=== PATIENT | female | born 1950 | race Caucasian/White ===

== ENCOUNTER 2019-05-02 21:18 | Observation (INO) | payer MEDICARE, OTHER ==
[2019-05-02] MEDS ORDERED: Aspirin Chewable 81 MG TAB ONE (21:56)
[2019-05-02 22:31] LABS: #Basophils 0.1 thou/uL (0.0-0.2); #Eosinphils 0.1 thou/uL (0.0-0.7); #Lymphocytes 3.9 thou/uL (1.20-3.40); #Monocytes 0.9 thou/uL (0.11-0.59); #Neutrophils 6.9 thou/uL (1.40-6.50); %Basophils 0.6 % (0.0-1.0); %Eosinophils 1.2 % (0.0-10.0); %Lymphocytes 32.6 % (21.0-51.0); %Monocytes 7.6 % (0.0-10.0); Hemoglobin 13.9 g/dL (12.0-16.0); Mean Corpuscular HGB CONC 34.3 g/dL (32.0-36.0); Mean Corpuscular Hemoglobin 31.5 pg (27.0-31.0); Mean Corpuscular Volume 91.9 fL (78.0-98.0); Mean Platelet Volume 8.9 fL (7.4-10.4); Platelet Count 228 thou/uL (130-400); RBC Distribution Width 13.2 % (11.5-14.5); Red Blood Cell (RBC) Count 4.39 mill/uL (4.20-5.40); White Blood Cell (WBC) Count 11.8 thou/uL (4.8-10.8)
[2019-05-02 22:32] LABS: PTT 27.9 SEC (22.9-36.1); Prothrombin Time 13.3 SEC (12.0-14.7)
--- NOTE | 2019-05-02 22:37 | RAD ---
EXAM: CHEST ONE VIEW HISTORY: Chest pain COMPARISON: 01/23/2009 FINDINGS: Postsurgical changes related to CABG are again noted. The cardiac silhouette and pulmonary vasculatur e are within normal limits. The lungs are clear. Vascular calcifications are seen in thoracic aorta. IMPRESSION: No acute cardiopulmonary process.
[2019-05-02 22:43] LABS: ALT (SGPT) 14 U/L (8-55); AST (SGOT) 17 U/L (5-34); Albumin 4.3 g/dL (3.4-4.8); Alkaline Phosphatase 84 U/L (40-150); Anion Gap 15 mmol/L (10-20); BUN (Urea Nitrogen) 19 mg/dL (9.8-20.1); Bilirubin, Total 0.3 mg/dL (0.2-1.2); Calc. Creatinine Clearance 0 mL/min (70-130); Calcium 10.3 mg/dL (7.8-10.44); Carbon Dioxide 24 mmol/L (23-31); Chloride 100 mmol/L (98-107); Estimated GFR-MDRD 51; Globulin 2.7 g/dL (2.4-3.5); Glucose 162 mg/dL (80-115); Magnesium 1.5 mg/dL (1.6-2.6); Potassium 3.9 mmol/L (3.5-5.1); Sodium 135 mmol/L (136-145)
[2019-05-03 01:45] LABS: Troponin I Less than 0.010 ng/mL (< 0.028)
[2019-05-03 04:23] LABS: Troponin I 0.019 ng/mL (< 0.028)
[2019-05-03 07:42] VITALS: BMI 37.5
[2019-05-03] MEDS ORDERED: Ondansetron PF 4 MG/2 ML Vial IVP PRN (08:19)
[2019-05-03] MEDS ORDERED: HumaLOG 300 UNITS/3 ML VIAL SC PRN (08:22)
[2019-05-03] MEDS ORDERED: Dextrose 50% Abboject 50 ML SYRINGE SLOW IVP PRN (08:22)
[2019-05-03] MEDS ORDERED: Dextrose 5% in Water 1,000 ML IV PRN (08:22)
--- NOTE | 2019-05-03 09:22 | HP ---
CHIEF COMPLAINT: Palpitations. HISTORY OF PRESENT ILLNESS: The patient is a very pleasant 68-year-old female with past medical history significant for type 2 diabetes mellitus, triple-vessel coronary artery disease, status post 4-vessel CABG 10 years ago, and hyperlipidemia, who presented to the hospital after experiencing acute onset of palpitations, which occurred just after the patient used her exercise bike. The patient states that she had not been exercising regularly for the past 6 weeks, and recently started back on her exercise regimen. After she used her exercise bike for 10 minutes yesterday evening, she began experiencing what she described as her heart flopping and jumping out of her chest. This sensation was uncomfortable, although she denies any specific chest pain or shortness of breath. Because her symptoms did not resolve on their own, the patient presented to the [facility] for further workup and treatment. On arrival, initial EKG did show bigeminal PVCs. These did resolve on her own, and followup EKG revealed sinus rhythm with no acute ST or T-wave changes. Her serial troponin has been negative x2. The patient denies any increased caffeine intake or other instigating factors aside from recent induction in the exercise program. Past cardiac history does include a 4-vessel CABG performed by Dr. High 10 years ago. The patient has had no further cardiac workup or follow up with life skills educator since that time. She has had no stress test or left heart catheterization. She has had no hospitalization for cardiac-related issues until this time. Of note, the patient is not on a statin medication, and quit her aspirin on her own secondary to constipation. REVIEW OF SYSTEMS: Twelve-point review of systems performed and is negative, except that stated above. She denies any chest pain, shortness of breath, or recent illnesses. No cough, fever, or chills. No dysuria. No blood in her urine or stool. The patient also reports that she had no prodrome prior to her CABG 10 years ago. She remembers an uncomfortable feeling in her chest, but had no overt obvious cardiac symptoms such as angina or shortness of breath. ALLERGIES: PROMETHAZINE. HOME MEDICATIONS: 1. Glipizide 5 mg two tablets b.i.d. 2. Metformin 500 mg tablet, 2 tablets orally b.i.d. 3. Sertraline 100 mg tablet, one tablet once daily. 4. Tizanidine 4 mg tablet, one tablet q.8 hours p.r.n. 5. Lisinopril/hydrochlorothiazide 20/12.5 two tablets orally once daily. 6. Cartia XT 180 mg tablet one tablet daily. PAST MEDICAL HISTORY: Significant for asthma, hypertension, arthritis, sciatica, coronary artery disease, type 2 diabetes mellitus. PSYCHIATRIC HISTORY: Positive for depression. PAST SURGICAL HISTORY: Four-vessel CABG performed by Dr. High as previously mentioned, carpal tunnel release surgery bilaterally, procedure for cervical stenosis, cholecystectomy, hysterectomy. FAMILY HISTORY: Positive for coronary artery disease in both her mother and her father. SOCIAL HISTORY: The patient drinks alcohol rarely. She has never been a smoker. She does not use illicit drugs. She lives in [facility] and has 5 children and 8 grandchildren. PHYSICAL EXAMINATION: VITAL SIGNS: Blood pressure is 139/66, pulse is 61, respirations are 20, O2 saturation is 95% on room air. GENERAL: The patient is a moderately obese female, resting comfortably in bed, in no acute distress. HEENT: Head is atraumatic and normocephalic. Mucous membranes are moist. Extraocular movements intact. NECK: Supple. No lymphadenopathy. No carotid bruit. No obvious JVD. Trachea is midline. CV: S1 and S2. Regular rate and rhythm. Soft systolic murmur grade 1/6. LUNGS: Regular respiratory rate and pattern. Clear to auscultation bilaterally. Sternotomy scar present on anterior chest. ABDOMEN: Positive bowel sounds. Soft, nontender. Moderately obese. No masses. EXTREMITIES: No lower extremity pitting edema. +2 DP pulses bilaterally. SKIN: Warm and dry. No rashes or discolorations. NEUROLOGIC: Cranial nerves 2 through 12 are grossly intact. The patient is nonfocal. PSYCHIATRIC: Alert and oriented x3. Appropriate effect. LABORATORY DATA: White blood cell count 11.8, hemoglobin 13.9, hematocrit 40.3, platelet count is 228. PT is 13.3, INR is 1.0. Sodium 135, potassium 3.9, BUN 19, creatinine 1.08, glucose 162, magnesium 1.5. AST, ALT, alkaline phosphatase all within normal limits. Troponin 0.012, 0.019 respectively. ASSESSMENT: 1. Exercise-induced bigeminal premature ventricular contractions, worrisome for ischemic focused in a patient with known coronary artery disease and 4-vessel coronary artery bypass graft 10 years ago. 2. Triple-vessel coronary artery disease, status post 4-vessel coronary artery bypass graft [place] [address] High. No cardiac workup since that time. 3. Type 2 diabetes mellitus. 4. Hypertension. 5. Hyperlipidemia. 6. Mild hypomagnesemia. 7. Anxiety, treated with sertraline. PLAN: Given the patient's history and initial EKG, we will consult Cardiology for further recommendations. Certainly, PVCs are worrisome for ischemic-mediated as it occurred immediately post exercise in a patient with known disease and no prior workup. We will defer to Cardiology regarding further workup for ischemia either stress test versus left heart catheterization. I will replete magnesium and initiate antiplatelet therapy with aspirin 81 mg daily. We will also obtain fasting lipid panel and start statin therapy. Sliding scale insulin will be started while the patient is here in the hospital. Further recommendations based on hospital course. We will continue close telemetry monitoring. Job ID: [id number]
[2019-05-03] MEDS: Famotidine 20 MG TAB PO SCH ×2 (09:41→20:03)
[2019-05-03 09:43] LABS: Cardiac Risk 5.4 (Less than 4.5)
[2019-05-03] MEDS ORDERED: tiZANidine HCl 4 MG TAB PO PRN (10:00)
[2019-05-03] MEDS ORDERED: Magnesium 2 GM/50 ML 2 GM in Premix Bag 1 BAG IVPB SCH (10:00)
[2019-05-03] MEDS: Lisinopril/Hydrochlorothiazide 20 mg/12.5 mg Tablet PO SCH (11:03)
--- NOTE | 2019-05-03 11:08 | CON ---
DATE OF CONSULTATION: 05/03/2019 REASON FOR CONSULTATION: Ventricular bigeminy, 10 years post bypass surgery. HISTORY OF PRESENT ILLNESS: Ms. Camarena is a 68-year-old woman. She was seen here and evaluated by Dr. Fermin, 10 years ago. She was found to have three-vessel coronary artery disease and underwent coronary artery bypass grafting. The patient did well following that. She was tried on statins, but did not feel well, ultimately went off all cholesterol medicines. The patient has had a previous episode of some palpitations, but it was transient. Last night, she had another episode of palpitations and she took her pulse and it was in the low 40s. She came here to the emergency room. She was found to be in ventricular bigeminy, which later resolved. She did not have chest pain or pressure. Prior to her bypass, she did have some chest pressure, but only mild symptoms. MEDICATIONS: Prior to admission; 1. Sertraline. 2. Metformin. 3. Glipizide. 4. Lisinopril/hydrochlorothiazide. 5. Diltiazem 180 mg a day. 6. Cyclobenzaprine. ALLERGIES: ALLERGY TO PROMETHAZINE. REVIEW OF SYSTEMS: CONSTITUTIONAL: No significant weight gain or loss. VISION: No changes. HEARING: No changes. PULMONARY: No cough or wheezing. GASTROINTESTINAL: No nausea, vomiting, or diarrhea. SKIN: No rashes. NEUROLOGIC: No unilateral weakness or numbness. PSYCHIATRIC: No unusual depression or anxiety. PHYSICAL EXAMINATION: GENERAL: This is a pleasant 68-year-old woman. VITAL SIGNS: 5 feet 3 inches tall, 211 pounds, and BMI is 37. HEENT: Eyes, sclerae nonicteric. Mouth, mucous membranes moist. NECK: Supple. No lymphadenopathy. LUNGS: Clear. No wheezing, rales, or rhonchi. CARDIAC: Normal S1 and normal S2. There is no murmur, rub, or gallop. ABDOMEN: Obese and nontender. No hepatosplenomegaly. EXTREMITIES: Warm and dry. No clubbing, cyanosis, or edema. She has palpable dorsalis pedis pulses bilaterally. DIAGNOSTIC STUDIES: EKG last night did show ventricular bigeminy, today it is normal sinus rhythm. LABORATORY DATA: Sodium is 135, glucose 162, AST 17, and ALT 14. INR is 1. Lipid profile is pending. Hemoglobin is 13.9. Cardiac enzymes were within normal limits. The highest troponin was 0.019, normal being less than 0.028. The records do indicate the patient underwent bypass surgery. Dr. Fermin's notes indicate the patient had calcified coronary arteries. The bypass was done x4; internal mammary to the LAD, saphenous vein graft to 1.5 mm diagonal, saphenous vein graft to 1.75 mm obtuse marginal 2, and saphenous vein graft to diffusely diseased, heavily calcified distal RCA, heavily calcified. ASSESSMENT: 1. Ventricular bigeminy. 2. Previous bypass surgery. 3. Not on any statin therapy. She has been previously intolerant for statins, she tells me. 4. Diabetes. 5. Lipids were just now resulted. Her LDL is 136 and HDL is 36. PLAN: 1. Stress testing to risk stratify. 2. Echocardiogram. 3. Only low-dose statin and Zetia. If unable to tolerate, consideration for injectable medication could be given, but needs to try statins again with Zetia. Further recommendations following these tests. Job ID: [id number]
[2019-05-03] MEDS: Acetaminophen 325 MG TAB PO PRN ×2 (13:42→20:04)
[2019-05-03] MEDS ORDERED: Regadenoson 0.4 MG/5 ML SYRINGE ONE ×2 (14:30→20:00)
[2019-05-03] MEDS ORDERED: Rosuvastatin 5 MG TAB PO SCH (21:00)
[2019-05-04 05:54] LABS: #Eosinphils 0.2 thou/uL (0.0-0.7); #Lymphocytes 2.3 thou/uL (1.20-3.40); #Monocytes 0.5 thou/uL (0.11-0.59); #Neutrophils 4.4 thou/uL (1.40-6.50); %Basophils 0.3 % (0.0-1.0); %Eosinophils 2.1 % (0.0-10.0); %Monocytes 7.2 % (0.0-10.0); %Neutrophils 59.5 % (42.0-75.0); Hemoglobin 13.2 g/dL (12.0-16.0); Mean Corpuscular HGB CONC 34.4 g/dL (32.0-36.0); Mean Corpuscular Hemoglobin 31.8 pg (27.0-31.0); Mean Corpuscular Volume 92.4 fL (78.0-98.0); Mean Platelet Volume 8.6 fL (7.4-10.4); Platelet Count 217 thou/uL (130-400); RBC Distribution Width 13.1 % (11.5-14.5); Red Blood Cell (RBC) Count 4.16 mill/uL (4.20-5.40); White Blood Cell (WBC) Count 7.3 thou/uL (4.8-10.8)
[2019-05-04 06:09] LABS: Anion Gap 10 mmol/L (10-20); BUN (Urea Nitrogen) 12 mg/dL (9.8-20.1); Calc. Creatinine Clearance 86 mL/min (70-130); Carbon Dioxide 30 mmol/L (23-31); Chloride 96 mmol/L (98-107); Estimated GFR-MDRD 58; Glucose 147 mg/dL (80-115); Magnesium 1.8 mg/dL (1.6-2.6); Potassium 4.2 mmol/L (3.5-5.1); Sodium 132 mmol/L (136-145)
[2019-05-04] MEDS: Acetaminophen 325 MG TAB PO PRN (06:42)
--- NOTE | 2019-05-04 08:45 | NM ---
NM Cardiac Stress W EF WF HISTORY: Chest pain COMPARISON: None. FINDINGS: Examination was performed using 32.6 mCi of 90 9M technetium sestamibi on the stress and 32 .0 mCi on resting. This shows a tiny apical defect which is fixed. This may represent a tiny apical scar. No ischemic change. Wall motion: There is symmetric contractility to the ventricle. Left ventricular ejection fraction.: The calculated left ventricular ejection fraction was 75%. IMPRESSION: No evidence of ischemia.
[2019-05-04 08:46] VITALS: BP 148/69; TEMP 97.5
[2019-05-04] MEDS: Famotidine 20 MG TAB PO SCH (08:48)
[2019-05-04] MEDS: Lisinopril/Hydrochlorothiazide 20 mg/12.5 mg Tablet PO SCH (08:48)
[2019-05-04] MEDS ORDERED: Ezetimibe 10 MG TAB PO SCH (09:00)
[2019-05-04] MEDS ORDERED: Aspirin 81 mg Enteric Coated Tablet PO SCH (09:00)
--- NOTE | 2019-05-05 11:33 | DIS ---
DATE OF ADMISSION: 05/03/2019 DATE OF DISCHARGE: 05/04/2019 CHIEF COMPLAINT: On admission: Palpitations. DISCHARGE DIAGNOSES: 1. Bigeminal premature ventricular contractions with spontaneous resolution, nuclear stress test negative for reversible ischemia. 2. Triple-vessel coronary artery disease, status post four-vessel coronary artery bypass grafting [place] [address] High, nuclear stress test negative for ischemia, preserved EF. 3. Type 2 diabetes mellitus. 4. Hypertension. 5. Hyperlipidemia. 6. Mild hypomagnesemia at presentation, status post repletion. 7. Anxiety, treated with sertraline. BRIEF HOSPITAL COURSE: The patient is a pleasant, 68-year-old female with past medical history as outlined above, who presented to the hospital with palpitations. The patient states that she was on her exercise bike for approximately 10 minutes, and when she was finished, she began experiencing what she describes as her heart flopping and jumping out of her chest. This sensation was uncomfortable, although the patient denied any millie chest pain or shortness of breath. Her symptoms did not resolve on their own, so she presented to the [facility] for further workup and treatment. On arrival, initial EKG did show bigeminal PVCs, which did resolve on their own. She had no acute ST or T-wave changes. Dr. Magallanes of Cardiology was consulted as the patient has had no prior cardiac workup in the past 10 years since her CABG. Dr. Magallanes recommended a nuclear stress test, which was negative for reversible ischemia. She also underwent echocardiogram which revealed preserved ejection fraction of 55% to 60%, sclerotic aortic valve, but not stenotic, and moderate annular calcification of the mitral valve. The patient tolerated all procedures well and did not have any further PVCs. Today, the patient states she feels very well. She has no chest pain or shortness of breath. No further palpitations. The patient is ambulated in the kapoor without issue and feels well. DISCHARGE DISPOSITION: Home. CONDITION AT DISCHARGE: Stable. DISCHARGE INSTRUCTIONS AND FOLLOWUP: The patient will follow up on a regular basis with Dr. Magallanes. She will also see her primary care physician, Dr. Bebeto palmer. I have counseled the patient heavily on taking a baby aspirin daily, which the patient had not been doing. She has also been counseled heavily on the importance of statin and its role in coronary artery disease and prevention of MIs. She has agreed to statin therapy. MEDICATIONS AT DISCHARGE: 1. Cyclobenzaprine 5 mg tablet, 1 to 2 tablets p.o. at bedtime p.r.n. 2. Diltiazem 180 mg capsule daily. 3. Glipizide 10 mg tablet p.o. b.i.d. 4. Lisinopril 20/12.5 two tablets daily. 5. Metformin 1000 mg p.o. b.i.d. 6. Sertraline 100 mg p.o. daily. 7. Tizanidine 4 mg capsule, 1 to 2 p.o. at bedtime p.r.n. 8. Aspirin 81 mg p.o. daily. 9. Crestor 5 mg tablet, one tablet p.o. at bedtime. The care of this patient has been discussed with Dr. Bradley and Dr. Magallanes, who agree with discharge as above. Job ID: [id number]
== END 2019-05-04 12:44 | disposition home or self-care (01) ==
LOC: ERS 21:18 → 2SW 05-03 06:54
PROVIDERS: ADMIT Internal Medicine; ATTEND Internal Medicine
DX: I49.3 Ventricular premature depolarization (principal); R00.2 Palpitations; I10 Essential (primary) hypertension; I25.10 Atherosclerotic heart disease of native coronary artery without angina pectoris; E11.9 Type 2 diabetes mellitus without complications; E78.5 Hyperlipidemia, unspecified; E83.42 Hypomagnesemia; F32.9 Major depressive disorder, single episode, unspecified; F41.9 Anxiety disorder, unspecified; J45.909 Unspecified asthma, uncomplicated; M19.90 Unspecified osteoarthritis, unspecified site; M54.30 Sciatica, unspecified side; Z88.8 Allergy status to other drugs, medicaments and biological substances; Z95.1 Presence of aortocoronary bypass graft; Z79.84 Long term (current) use of oral hypoglycemic drugs; Z79.899 Other long term (current) drug therapy
CPT/HCPCS: 71045; 78452; 80048; 80053; 80061; 82962; 83735 ×2; 84484 ×3; 85025 ×2; 85610; 85730; 93005 ×2; 93017; 93306; 96365; 99285; A9500; G0378 ×2; 36415; 36416; J2785; J3475